=== PATIENT | male | born 1960 | race Caucasian/White ===

== ENCOUNTER → 2016-11-15 | Outpatient (REF) | LOC: LAB 09:29 | DX: Z00.00 Encounter for general adult medical examination without abnormal findings (principal); Z12.5 Encounter for screening for malignant neoplasm of prostate; Z12.11 Encounter for screening for malignant neoplasm of colon ==

== ENCOUNTER → 2016-12-27 | Outpatient (REF) | LOC: LAB 16:44 | DX: D75.1 Secondary polycythemia (principal) ==

== ENCOUNTER → 2017-08-22 | Outpatient (CLI) | payer BC | LOC: RAD 10:16 | DX: M48.061 Spinal stenosis, lumbar region without neurogenic claudication (principal); M25.78 Osteophyte, vertebrae; Z88.0 Allergy status to penicillin ==

== ENCOUNTER → 2017-09-01 | Outpatient (CLI) | payer BC | LOC: RAD 13:34 | DX: M48.061 Spinal stenosis, lumbar region without neurogenic claudication (principal); M47.816 Spondylosis without myelopathy or radiculopathy, lumbar region; M51.86 Other intervertebral disc disorders, lumbar region ==

== ENCOUNTER → 2020-11-10 | Outpatient (REF) | payer BC ==
[2020-11-10 17:37] LABS: BASO # 0.04 (0.02-0.10); EOS % 8.1 % (0.0-4.0); HEMOGLOBIN 18.7 g/dL (13.5-18.0); LYMPH# 2.53 (1.50-4.00); MEAN CELL VOLUME 87 fl (78-100); MEAN CORPUSCULAR HEMOGLOBIN 31 pg (27-31); MEAN CORPUSCULAR HGB CONC 35 g/dL (33-37); MEAN PLATELET VOLUME 10.3 fl (7.4-10.4); MONO # 0.71 (0.20-0.80); PLATELET COUNT 226 K/mm3 (130-400); RED BLOOD COUNT 6.13 M/mm3 (4.20-5.60); RED CELL DISTRIBUTION WIDTH 14.3 % (11.5-14.5); WHITE BLOOD COUNT 7.4 K/mm3 (4.8-10.8)
[2020-11-10 18:11] LABS: ALBUMIN 4.5 g/dL (3.5-5.0); POTASSIUM 3.8 mmol/L (3.5-5.1)
[2020-11-10 18:12] LABS: CALCIUM 9.5 mg/dL (8.3-10.5)
[2020-11-10 18:13] LABS: TOTAL PROTEIN 7.6 g/dL (6.4-8.3)
[2020-11-10 18:15] LABS: TOTAL BILIRUBIN 0.9 mg/dL (0.2-1.2)
[2020-11-11 18:56] LABS: TESTOSTERONE 282 ng/dL (221-716)
== END ==
LOC: LAB 17:25 → EDSTATUS 17:35
PROVIDERS: Internal Medicine
DX: Z00.00 Encounter for general adult medical examination without abnormal findings (principal); Z12.5 Encounter for screening for malignant neoplasm of prostate

== ENCOUNTER → 2021-04-25 | Outpatient (CLI) | payer BC | LOC: LAB 14:35 | DX: Z20.822 Contact with and (suspected) exposure to COVID-19 (principal) ==

== ENCOUNTER → 2021-07-18 | Outpatient (CLI) | payer BC | LOC: RAD 10:55 | DX: J18.1 Lobar pneumonia, unspecified organism (principal) ==